=== PATIENT | female | born 1960 | race Caucasian/White ===

== ENCOUNTER 2017-09-17 12:33 | Emergency (ER) | payer OTHER ==
[~2017-09-17] VITALS: Ht 167.6 cm; Wt 96.0 kg
[~2017-09-17 12:33] MED LIST: ASPI325T92 PO; ATOR20TA PO; DIAZ5TAB PO; GABA-826 PO; HYDR25TA6 PO; IBUP200C8 PO; KRIL1CAP5 PO; LORA-446 PO; LOSA100T6 PO; LOSA50TA2 PO; MELA1TAB8 PO; METF10002 PO; METF100C2 PO; MULT-208 PO; OXYC-307 PO; magnesium PO
[2017-09-17] MEDS ORDERED: CLINDAMYCIN PMX 300MG/50ML 50 ML IV ONE (14:00)
[2017-09-17 15:15] LABS: MICROSCOPIC NOT IND
[2017-09-17 15:23] LABS: CULTURE INDICATED? NO
[2017-09-17 15:35] VITALS: BP 139/85
== END 2017-09-17 16:33 | disposition home or self-care (01) ==
LOC: ED 16:25
DX: L03.311 Cellulitis of abdominal wall (principal); L03.115 Cellulitis of right lower limb; I10 Essential (primary) hypertension; E11.9 Type 2 diabetes mellitus without complications
CPT/HCPCS: 81003; 82962; 96365

== ENCOUNTER 2017-10-13 10:45 | Emergency (ER) | payer OTHER ==
[~2017-10-13] VITALS: Ht 167.6 cm; Wt 99.4 kg
[2017-10-13 10:56] VITALS: BP 136/72
== END 2017-10-13 12:43 | disposition home or self-care (01) ==
LOC: ED 11:45
DX: L03.113 Cellulitis of right upper limb (principal); E11.9 Type 2 diabetes mellitus without complications; I10 Essential (primary) hypertension
CPT/HCPCS: 99283